=== PATIENT | male | born 1950 | race African-American/Black ===

== ENCOUNTER 2016-03-02 05:32 | Inpatient (IN) | payer OTHER, MEDICARE ==
[~2016-03-02] VITALS: Ht 175.3 cm; Wt 95.0 kg
[~2016-03-02 05:32] MED LIST: AVOD0.5C PO; COUM6TAB PO
[2016-03-02 05:57] VITALS: BP 174/92; PULSE 91; RESP 16; TEMP 97.4; O2SAT 99
[2016-03-02] MEDS ORDERED: INSULIN HUMAN REGULAR 1,000 UNITS/10 ML VIAL SQ PRN (06:00)
[2016-03-02] MEDS ORDERED: LACTATED RINGER'S 1000 ML IV SCH (06:00)
[2016-03-02] MEDS ORDERED: SODIUM CHLORID 0.9% 500 ML IV SCH (06:00)
[2016-03-02] MEDS ORDERED: METOPROLOL TARTRATE 25 MG TAB PO PRN (06:00)
[2016-03-02] MEDS ORDERED: ceFAZolin 1,000 MG/NS 100 ML IV SCH ×2 (06:15)
[2016-03-02] MEDS ORDERED: ACETAMINOPHEN 1000 MG/100 ML VIAL IV SCH (06:15)
[2016-03-02] MEDS ORDERED: VANCOMYCIN 1,000 MG/NS 250 ML IV SCH ×2 (06:15)
[2016-03-02 06:27] LABS: AUTOMATED NEUTROPHIL # 2.3 TH/MM3 (1.8-7.7); BASOPHIL % 0.4 % (0.0-2.0); EOSINOPHIL # 0.1 TH/MM3 (0-0.4); EOSINOPHIL % 1.4 % (0.0-4.0); HEMATOCRIT 43.3 % (39.0-51.0); HEMO FLAGS DIFF FINAL; LYMPH % 40.8 % (9.0-44.0); MEAN CELL VOLUME 87.2 FL (80.0-100.0); MEAN CORPUSCULAR HEMOGLOBIN 29.4 PG (27.0-34.0); MEAN CORPUSCULAR HGB CONC 33.7 % (32.0-36.0); MONO % 10.4 % (0.0-8.0); PLATELET COUNT 176 TH/MM3 (150-450); RED BLOOD COUNT 4.96 MIL/MM3 (4.50-5.90); RED CELL DISTRIBUTION WIDTH 17.1 % (11.6-17.2)
[2016-03-02 06:48] LABS: PROTHROMBIN TIME - PATIENT 10.6 SEC (9.8-11.6)
[2016-03-02 06:53] LABS: BICARBONATE 21.5 MEQ/L (21.0-32.0)
[2016-03-02] MEDS ORDERED: MIDAZOLAM HCL 2 MG/2 ML VIAL ONE (06:59)
[2016-03-02] MEDS ORDERED: BUPIVACAINE/EPINEPHRINE 0.25% PF 30 ML VIAL ONE (07:02)
[2016-03-02] MEDS ORDERED: FAMOTIDINE 20 MG/2 ML VIAL ONE ×2 (07:09→07:34)
[2016-03-02] MEDS ORDERED: MIDAZOLAM HCL 5 MG/5 ML VIAL ONE (07:10)
[2016-03-02] MEDS ORDERED: DICLOFENAC SODIUM 37.5 MG/ML VIAL IV PUSH ONE (07:31)
[2016-03-02] MEDS ORDERED: HYDROmorphone HCL PF 2 MG/ML VIAL ONE ×2 (07:31→10:52)
[2016-03-02] MEDS ORDERED: fentaNYL CITRATE 250 MCG/5 ML AMP ONE ×2 (07:31→10:52)
[2016-03-02] MEDS ORDERED: DEXAMETHASONE SOD PHOS 4 MG/ML VIAL ONE (07:34)
[2016-03-02] MEDS ORDERED: ceFAZolin INJ 1,000 MG VIAL IV ONE ×3 (08:46→10:20)
[2016-03-02] MEDS ORDERED: LACTATED RINGER'S 1000 ML INJ 1,000 ML IV ONE (12:00)
[2016-03-02] MEDS ORDERED: ePHEDrine/NS 50 MG/5 ML SYR IV ONE (12:00)
[2016-03-02] MEDS ORDERED: PHENYLEPH/NS 1000 MCG/10 ML SYR IV ONE (12:00)
[2016-03-02] MEDS ORDERED: PROPOFOL 200 MG/20 ML AMP IV ONE (12:00)
[2016-03-02] MEDS ORDERED: ONDANSETRON HCL 4 MG/2 ML VIAL IV PUSH ONE (12:00)
[2016-03-02] MEDS ORDERED: ROPIVACAINE 0.5% PF INJ 30 ML VIAL NB ONE (12:12)
--- NOTE | 2016-03-02 13:22 | HHI.PR ---
cc: Terry Garcia MD Immediate Post Op Note Procedure Date: Mar 02, 2016 Pre Op Diagnosis: Multiple incisional hernias, complex, with history incarceration Post Op Diagnosis: Same Surgeon: Terry Garcia [employer]inding [employer] Operator(s): Jeffrey Aguilar CST Procedure: Exploratory laparotomy, lysis adhesions, reduction multiple incisional hernias Bilateral myofascial flap advancement with 15 x 15 cm ultrapro mesh Complications: None Estimated blood loss: 100 ml Anesthesia: General Drains: None IVF (1500 ml) Patient to: PACU Patient Condition: Good Date/Time of Procedure: SEE SURGICAL CARE RECORD Terry Garcia MD Mar 02, 2016 13:22
[2016-03-02] MEDS ORDERED: diphenhydrAMINE HCL 50 MG/ML VIAL IVP PRN (13:30)
[2016-03-02] MEDS ORDERED: KETOROLAC TROMETHAMINE 30 MG/ML (IVP) VIAL IVP PRN (13:30)
[2016-03-02] MEDS ORDERED: ENOXAPARIN SODIUM 40 MG/0.4 ML SYRINGE SQ SCH (13:30)
[2016-03-02] MEDS ORDERED: ONDANSETRON HCL 4 MG/2 ML VIAL IV PRN (13:30)
[2016-03-02] MEDS ORDERED: Post-op Orders (for Pharmacy) MISC XX ONE (13:30)
[2016-03-02] MEDS ORDERED: NALOXONE HCL 0.4 MG/ML AMP IV PRN (13:30)
[2016-03-02] MEDS ORDERED: diphenhydrAMINE HCL 50 MG/ML VIAL IV PRN (13:30)
[2016-03-02] MEDS ORDERED: KETOROLAC TROMETHAMINE 30 MG/ML (IVP) VIAL ONE (13:35)
[2016-03-02] MEDS: ceFAZolin 2 GM PREMIX 50 ML IV SCH ×2 (14:00→23:01)
[2016-03-02] MEDS: PCA - TOTAL MG MORPHINE DELIVERED PER SHIFT SCH ×2 (14:00→22:00)
[2016-03-02] MEDS ORDERED: METOPROLOL TARTRATE 5 MG/5 ML VIAL ONE (14:32)
[2016-03-02] MEDS ORDERED: METOPROLOL TARTRATE 5 MG/5 ML VIAL IV PUSH ONE (14:45)
[2016-03-02] MEDS ORDERED: SODIUM CHLORID 0.9% 500 ML INJ 500 ML IV ONE (15:00)
[2016-03-02 15:10] VITALS: BP 127/73; PULSE 103; RESP 18; TEMP 97; O2SAT 92
[2016-03-02] MEDS: D5-NS + KCL 20 MEQ INJ 1,000 ML IV SCH ×2 (15:14→23:01)
[2016-03-02] MEDS: MORPHINE SULFATE 30 MG/30 ML PCA IV SCH (16:22)
[2016-03-02 20:00] VITALS: BP 148/77; PULSE 101; RESP 19; TEMP 97; O2SAT 96
[2016-03-02 20:44] VITALS: PULSE 104
[2016-03-02] MEDS ORDERED: ZOLPIDEM TARTRATE 5 MG TAB PO PRN (21:00)
[2016-03-02] MEDS: SODIUM CHLORIDE 0.9% FLUSH 5 ML FLUSH IVF SCH (21:00)
[2016-03-03] VITALS (7 sets, daily range): BP systolic 110–164; BP diastolic 65–81; PULSE 79–115; RESP 17–20; TEMP 97.8–99.8; O2SAT 93–96
[2016-03-03] MEDS: D5-NS + KCL 20 MEQ INJ 1,000 ML IV SCH ×3 (05:00→20:52)
[2016-03-03] MEDS: ceFAZolin 2 GM PREMIX 50 ML IV SCH (05:00)
[2016-03-03] MEDS: PCA - TOTAL MG MORPHINE DELIVERED PER SHIFT SCH ×3 (05:01→20:53)
[2016-03-03] MEDS: MORPHINE SULFATE 30 MG/30 ML PCA IV SCH ×2 (05:07→16:37)
[2016-03-03 05:10] LABS: AUTOMATED NEUTROPHIL # 14.4 TH/MM3 (1.8-7.7); BASOPHIL % 0.1 % (0.0-2.0); HEMATOCRIT 37.4 % (39.0-51.0); HEMO FLAGS DIFF FINAL; LYMPH % 6.4 % (9.0-44.0); LYMPHOCYTE # 1.1 TH/MM3 (1.0-4.8); MEAN CELL VOLUME 87.3 FL (80.0-100.0); MEAN CORPUSCULAR HEMOGLOBIN 29.5 PG (27.0-34.0); MEAN CORPUSCULAR HGB CONC 33.8 % (32.0-36.0); MONO % 8.8 % (0.0-8.0); NEUT % 84.7 % (16.0-70.0); PLATELET COUNT 171 TH/MM3 (150-450); RED BLOOD COUNT 4.28 MIL/MM3 (4.50-5.90); RED CELL DISTRIBUTION WIDTH 16.7 % (11.6-17.2)
[2016-03-03 05:40] LABS: BICARBONATE 22.7 MEQ/L (21.0-32.0); POTASSIUM 4.8 MEQ/L (3.5-5.1)
[2016-03-03] MEDS: SODIUM CHLORIDE 0.9% FLUSH 5 ML FLUSH IVF SCH ×2 (07:30→20:52)
[2016-03-03] MEDS: FINASTERIDE 5 MG TAB PO SCH (07:30)
[2016-03-03] MEDS ORDERED: PNEUMOCOCCAL POLYVALENT INJ 25 MCG/0.5 ML SYR IM ONE (10:00)
[2016-03-03] MEDS: ENOXAPARIN SODIUM 40 MG/0.4 ML SYRINGE SQ SCH (11:26)
[2016-03-03] MEDS ORDERED: RESP: ALBUTEROL 2.5 MG/IPRATROPIUM 0.5 MG NEB (SCH) NEB ONE (14:00)
--- NOTE | 2016-03-03 14:12 | RADRPT ---
EXAM DATE/TIME: 03/03/2016 14:04 [facility] COMPARISON: No previous studies available for comparison. INDICATIONS : Evaluate for volume overload. MEDICAL HISTORY : None. SURGICAL HISTORY : None. ENCOUNTER: Initial ACUITY: 1 day PAIN SCORE: 0/10 LOCATION: Bilateral chest FINDINGS: Volumes are diminished. There is no consolidation or effusion. Linear scarring versus subsegmental at electasis at the right base. Osseous structures are intact. CONCLUSION: Right basilar atelectasis. No evidence for volume overload. Patrick Goodson MD on March 03, 2016 at 14:11 Board Certified Radiologist. This report was verified electronically.
--- NOTE | 2016-03-03 18:18 | HHI.PR ---
Subjective Subjective Notes Feels fairly well. Some wheezing noted at times, but not SOB Objective Vitals/I&O Vital Signs Date Time Temp Pulse Resp B/P Pulse Ox O2 Delivery O2 Flow Rate FiO2 03/03/16 16:37 18 03/03/16 16:00 97.8 110 119/74 93 03/02/16 14:45 Nasal Cannula 2 Labs Laboratory Tests Test 03/03/16 04:30 White Blood Count 17.0 Red Blood Count 4.28 Hemoglobin 12.6 Hematocrit 37.4 Mean Corpuscular Volume 87.3 Mean Corpuscular Hemoglobin 29.5 Mean Corpuscular Hemoglobin 33.8 Concent Red Cell Distribution Width 16.7 Platelet Count 171 Mean Platelet Volume 8.3 Neutrophils (%) (Auto) 84.7 Lymphocytes (%) (Auto) 6.4 Monocytes (%) (Auto) 8.8 Eosinophils (%) (Auto) 0.0 Basophils (%) (Auto) 0.1 Neutrophils # (Auto) 14.4 Lymphocytes # (Auto) 1.1 Monocytes # (Auto) 1.5 Eosinophils # (Auto) 0.0 Basophils # (Auto) 0.0 CBC Comment DIFF FINAL Differential Comment Sodium Level 140 Potassium Level 4.8 Chloride Level 108 Carbon Dioxide Level 22.7 Anion Gap 9 Blood Urea Nitrogen 16 Creatinine 1.19 Estimat Glomerular Filtration 74 Rate Random Glucose 134 Calcium Level 8.4 Lungs: Clear Abdomen: Non-distended, Post-op tenderness Extremities: No edema Narrative Exam Bottom of SYLVIA dressing with old drainage A/P Assessment and Plan POD #1 TAWR with ultrapro mesh large volume urine output Plan: Check CXR Leave mackey in one more day Advance to full liquid diet Up to chair today Discussed with patient and . Terry Garcia MD Mar 03, 2016 18:18
[2016-03-04] VITALS (9 sets, daily range): BP systolic 136–175; BP diastolic 76–107; PULSE 96–143; RESP 16–19; TEMP 97.7–99.9; O2SAT 94–96
[2016-03-04] MEDS: PCA - TOTAL MG MORPHINE DELIVERED PER SHIFT SCH ×3 (05:51→20:28)
[2016-03-04] MEDS: D5-NS + KCL 20 MEQ INJ 1,000 ML IV SCH ×3 (05:51→20:20)
[2016-03-04 07:11] LABS: AUTOMATED NEUTROPHIL # 7.9 TH/MM3 (1.8-7.7); BASOPHIL % 0.2 % (0.0-2.0); EOSINOPHIL % 0.3 % (0.0-4.0); HEMATOCRIT 35.2 % (39.0-51.0); HEMO FLAGS DIFF FINAL; LYMPH % 10.2 % (9.0-44.0); MEAN CELL VOLUME 87.2 FL (80.0-100.0); MEAN CORPUSCULAR HEMOGLOBIN 30.3 PG (27.0-34.0); MEAN CORPUSCULAR HGB CONC 34.7 % (32.0-36.0); MONO % 9.2 % (0.0-8.0); NEUT % 80.1 % (16.0-70.0); PLATELET COUNT 145 TH/MM3 (150-450); RED BLOOD COUNT 4.03 MIL/MM3 (4.50-5.90); WHITE BLOOD COUNT 9.9 TH/MM3 (4.0-11.0)
[2016-03-04 07:26] LABS: PROTHROMBIN TIME - PATIENT 11.1 SEC (9.8-11.6)
[2016-03-04] MEDS: SODIUM CHLORIDE 0.9% FLUSH 5 ML FLUSH IVF SCH ×2 (08:30→20:20)
[2016-03-04] MEDS: FINASTERIDE 5 MG TAB PO SCH (09:30)
[2016-03-04] MEDS: ENOXAPARIN SODIUM 40 MG/0.4 ML SYRINGE SQ SCH (09:30)
--- NOTE | 2016-03-04 09:52 | HHI.PR ---
Subjective Subjective Notes no new c/o Objective Vitals/I&O Vital Signs Date Time Temp Pulse Resp B/P Pulse Ox O2 Delivery O2 Flow Rate FiO2 03/04/16 08:00 99.3 128 18 145/97 95 03/02/16 14:45 Nasal Cannula 2 Labs Laboratory Tests Test 03/04/16 05:45 White Blood Count 9.9 Red Blood Count 4.03 Hemoglobin 12.2 Hematocrit 35.2 Mean Corpuscular Volume 87.2 Mean Corpuscular Hemoglobin 30.3 Mean Corpuscular Hemoglobin 34.7 Concent Red Cell Distribution Width 17.0 Platelet Count 145 Mean Platelet Volume 8.5 Neutrophils (%) (Auto) 80.1 Lymphocytes (%) (Auto) 10.2 Monocytes (%) (Auto) 9.2 Eosinophils (%) (Auto) 0.3 Basophils (%) (Auto) 0.2 Neutrophils # (Auto) 7.9 Lymphocytes # (Auto) 1.0 Monocytes # (Auto) 0.9 Eosinophils # (Auto) 0.0 Basophils # (Auto) 0.0 CBC Comment DIFF FINAL Differential Comment Prothrombin Time 11.1 Prothromb Time International 1.0 Ratio Cardiovascular: Regular Lungs: Clear Abdomen: Post-op tenderness Extremities: No edema, Perfused, SCD's on Narrative Exam soft, tympanic, decreased BS A/P Assessment and Plan 65yo male s/p abdominal wall reconstruction, stable. - increase abdomen on exam, vomiting, no gas, decrease BS, suspect po ileus, check KUB, place NG for vomiting - PICC line - NPO George Delgadillo MD Mar 04, 2016 09:52
--- NOTE | 2016-03-04 10:44 | RADRPT ---
EXAM DATE/TIME: 03/04/2016 10:05 [facility] COMPARISON: CT ABDOMEN & PELVIS W CONTRAST, January 22, 2016, 12:09. INDICATIONS : Post operation for abdominal wall reconstruction. MEDICAL HISTORY : Hernia. SURGICAL HISTORY : Appendectomy. Hernial repair. ENCOUNTER: Initial ACUITY: 1 day PAIN SCORE: 5/10 LOCATION: Bilateral abdomen. FINDINGS: Supine view of the abdomen was performed. The abdominal bowel gas pattern reveals mild bowel distent ion which may reflect a mild ileus pattern. No abnormal masses, calcifications, or organomegaly is s een. The osseous structures are unremarkable. CONCLUSION: Probable mild ileus. Patrick Goodson MD on March 04, 2016 at 10:42 Board Certified Radiologist. This report was verified electronically.
[2016-03-04] MEDS ORDERED: MORPHINE SULFATE 4 MG/ML INJ IM PRN (11:00)
[2016-03-04] MEDS ORDERED: ACETAMINOPHEN/HYDROcodone 325 MG/5 MG TAB PO PRN ×2 (11:00)
[2016-03-04] MEDS: CALCIUM CARBONATE 500 MG CHEWABLE TAB PO PRN ×2 (11:28→16:04)
[2016-03-04] MEDS: MORPHINE SULFATE 30 MG/30 ML PCA IV SCH (13:47)
[2016-03-04] MEDS: ENALAPRILAT 1.25 MG/ML VIAL IV PRN (15:58)
[2016-03-05] VITALS (9 sets, daily range): BP systolic 122–176; BP diastolic 81–103; PULSE 106–143; RESP 16–20; TEMP 96.7–99.8; O2SAT 93–95
[2016-03-05] MEDS: ENALAPRILAT 1.25 MG/ML VIAL IV PRN ×2 (04:59→12:38)
[2016-03-05] MEDS: D5-NS + KCL 20 MEQ INJ 1,000 ML IV SCH ×2 (04:59→08:26)
[2016-03-05] MEDS: PCA - TOTAL MG MORPHINE DELIVERED PER SHIFT SCH ×3 (04:59→20:25)
[2016-03-05 06:05] LABS: HEMATOCRIT 40.1 % (39.0-51.0); MEAN CELL VOLUME 87.5 FL (80.0-100.0); MEAN CORPUSCULAR HEMOGLOBIN 29.8 PG (27.0-34.0); MEAN CORPUSCULAR HGB CONC 34.1 % (32.0-36.0); PLATELET COUNT 189 TH/MM3 (150-450); RED BLOOD COUNT 4.58 MIL/MM3 (4.50-5.90); RED CELL DISTRIBUTION WIDTH 17.5 % (11.6-17.2); REVIEW FLAG FINAL; WHITE BLOOD COUNT 11.5 TH/MM3 (4.0-11.0)
[2016-03-05 06:09] LABS: PROTHROMBIN TIME - PATIENT 11.1 SEC (9.8-11.6)
[2016-03-05 06:34] LABS: BICARBONATE 23.4 MEQ/L (21.0-32.0)
[2016-03-05] MEDS: FINASTERIDE 5 MG TAB PO SCH (08:23)
[2016-03-05] MEDS: SODIUM CHLORIDE 0.9% FLUSH 5 ML FLUSH IVF SCH ×2 (09:00→20:25)
--- NOTE | 2016-03-05 11:40 | RADRPT ---
EXAM DATE/TIME: 03/05/2016 11:29 [facility] COMPARISON: ABDOMEN KUB ONLY, March 04, 2016, 10:05. INDICATIONS : Abdominal distention post op. MEDICAL HISTORY : Deep venous thrombosis. SURGICAL HISTORY : Appendectomy. hernia repair ENCOUNTER: Initial ACUITY: 4 - 6 days PAIN SCORE: 0/10 LOCATION: Bilateral abdomen FINDINGS: There are dilated loops of small bowel seen throughout the midabdomen with air-fluid levels on the up right view. A paucity of distal bowel gas is noted. Ileus is suspected, however a developing obstruct ion is not excluded. NG tube tip coiled in the proximal stomach. CONCLUSION: Abnormal distention of bowel loops as described above. Patrick Goodson MD on March 05, 2016 at 11:38 Board Certified Radiologist. This report was verified electronically.
[2016-03-05] MEDS: METOCLOPRAMIDE HCL 10 MG/2 ML VIAL IV PUSH SCH ×2 (12:48→20:26)
[2016-03-05] MEDS: SODIUM CHLOR 0.9% 1000 ML INJ 1,000 ML IV SCH ×2 (12:48→14:51)
[2016-03-05] MEDS ORDERED: BISACODYL 10 MG SUPP RECTAL ONE (13:00)
[2016-03-05] MEDS: ceFAZolin 1,000 MG/NS 100 ML IV SCH ×4 (14:51→20:25)
[2016-03-05 15:31] LABS: BACTERIA, URINE RARE /hpf; BLOOD, URINE MOD (NEG); GLUCOSE,URINE NEG (NEG); KETONE, URINE NEG (NEG); MUCUS URINE MOD /lpf (OCC); NITRITE,URINE NEG (NEG)
[2016-03-05 15:32] LABS: COMMENT (UR) CATH-CULTURE IND; CULTURE IF INDICATED CATH CULTURE IND; URINE COLOR ORANGE (YELLW/STRAW)
[2016-03-05] MEDS ORDERED: SODIUM CHLORID 0.9% 500 ML INJ 500 ML IV ONE (21:00)
--- NOTE | 2016-03-05 22:42 | MP ---
cc: JAIME GARCIA M.D. DATE OF SURGERY: 03/02/2016. PROCEDURE: 1. Exploratory laparotomy with reduction of incarcerated incisional hernias. 2. Lysis of adhesions greater than one hour. 3. Bilateral myofascial flap advancement. 4. Placement of 15 x 15 Ultrapro mesh. PREOPERATIVE DIAGNOSIS: Incarcerated incisional hernias, symptomatic. POSTOPERATIVE DIAGNOSIS: Incarcerated incisional hernias, symptomatic. ANESTHESIA: General endotracheal anesthesia SURGEON: Alexis Garcia MD. ESTIMATED BLOOD LOSS: 100 mL FLUIDS: 1500 mL Crystalloid. COMPLICATIONS: None. DRAINS: None. SPECIMEN: None. PROCEDURE IN DETAIL The patient underwent TAP block in the holding area prior to going to the operating room. The patient was taken to the operating room and placed on the operating table in the supine position. After an adequate level of general endotracheal anesthesia was achieved, the abdomen was prepped and draped in the usual fashion. Time-out was taken confirming the correct patient, site and procedure to be performed. Incision was made around the patient's previous scar and most of the longitudinal scar was removed. Some of the patient's previous drain sites could not be excised and these were left intact. After removing the scar, dissection was carried down to the hernias. The patient had at least four hernias with three in the right paramedian scar and one in the midline under the umbilicus. These hernias varied in size between 2 and 6 cm. Three were grouped fairly close together in the middle portion of the incision. These were joined together and underlying tissue which was incarcerated and comprised mostly of preperitoneal fat was reduced into the abdominal cavity after freeing them from the hernia sacs with both sharp dissection and electrocautery. When this had been completed, adhesions were taken down off of the anterior abdominal wall which consisted mostly of omentum. When this had been completely reduced and taken down off the anterior abdominal wall, more than 60 minutes had elapsed. The multiple hernias in the right paramedian scar were connected to make one large defect. When this had been completed, dissection was then carried out in the subfascial plane under the rectus muscles. Dissection was carried out on the right side first and this was carried out all the way over to the anterior superior iliac spine and to the lateral abdominal wall. Dissection was then carried out medially crossing across the midline and then proceeding over to the patient's left all the way over to the lateral border of the abdominal wall and the edge of the transversus abdominis muscle. When this had been completed, the posterior layer of fascia and peritoneum was closed with 0 Vicryl suture in an interrupted fashion. This excluded the mesh material from the peritoneum. A 15 x 15 cm piece of Ultrapro mesh was then brought up and placed into the defect. The mesh was fixed superiorly and inferiorly first with 0 Vicryl suture and then laterally at multiple points with the 0 Vicryl suture. This allowed for placement of the mesh in the subfascial plane in the retro-rectus space. When this had been completed with the mesh transfixed laterally and superiorly as well as inferiorly, the anterior fascia was able to be approximated without any tension. Interrupted #1 Prolene was used to close this layer. When this was completed excess skin was excised from the anterior abdominal wall including scar. The subcutaneous space was then closed down with running 3-0 Vicryl suture to minimize space. The wound was then reapproximated in the right paramedian scar with interrupted 3-0 Vicryl suture and the skin closed with 5-0 PDS in a running subcuticular fashion. The wound was dressed with Steri-Strips and a SYLVIA dressing was applied. It should be noted that the fascia was released on both sides once dissection had been carried out lateral to the rectus muscle in the posterior layer. This allowed for the posterior layer to be reapproximated. The mesh overlapped this release and was placed lateral to the release. An abdominal binder was applied at the completion of the procedure. Sponge, needle and instrument counts were reported to be correct x2 after closure of each layer. The patient was extubated and taken back to the recovery room in stable condition. MD MANJULA Enriquez/GHANSHYAM /9:40 PM /10:28 PM ANASTACAI
[2016-03-06] VITALS (9 sets, daily range): BP systolic 131–173; BP diastolic 87–94; PULSE 108–135; RESP 19–20; TEMP 97.2–99.4; O2SAT 93–97
[2016-03-06] MEDS: SODIUM CHLOR 0.9% 1000 ML INJ 1,000 ML IV SCH (03:47)
[2016-03-06] MEDS: ENALAPRILAT 1.25 MG/ML VIAL IV PRN (03:49)
[2016-03-06] MEDS: ceFAZolin 1,000 MG/NS 100 ML IV SCH ×6 (05:00→20:31)
[2016-03-06] MEDS: PCA - TOTAL MG MORPHINE DELIVERED PER SHIFT SCH ×3 (05:00→20:32)
[2016-03-06] MEDS: METOCLOPRAMIDE HCL 10 MG/2 ML VIAL IV PUSH SCH ×3 (05:01→22:00)
[2016-03-06 06:05] LABS: PROTHROMBIN TIME - PATIENT 11.1 SEC (9.8-11.6)
[2016-03-06 06:07] LABS: AUTOMATED NEUTROPHIL # 7.8 TH/MM3 (1.8-7.7); BASOPHIL % 0.2 % (0.0-2.0); EOSINOPHIL % 0.1 % (0.0-4.0); HEMATOCRIT 32.5 % (39.0-51.0); HEMO FLAGS DIFF FINAL; LYMPHOCYTE # 1.2 TH/MM3 (1.0-4.8); MEAN CELL VOLUME 86.5 FL (80.0-100.0); MEAN CORPUSCULAR HGB CONC 34.7 % (32.0-36.0); NEUT % 75.7 % (16.0-70.0); PLATELET COUNT 157 TH/MM3 (150-450); RED BLOOD COUNT 3.76 MIL/MM3 (4.50-5.90); RED CELL DISTRIBUTION WIDTH 17.1 % (11.6-17.2); WHITE BLOOD COUNT 10.2 TH/MM3 (4.0-11.0)
[2016-03-06 06:17] LABS: BICARBONATE 24.2 MEQ/L (21.0-32.0); POTASSIUM 4.1 MEQ/L (3.5-5.1)
[2016-03-06] MEDS: SODIUM CHLORIDE 0.9% FLUSH 5 ML FLUSH IVF SCH ×2 (09:00→20:32)
[2016-03-06] MEDS: FINASTERIDE 5 MG TAB PO SCH (09:00)
--- NOTE | 2016-03-06 10:31 | HHI.PR ---
Subjective Subjective Notes Still feels poorly. Uncomfortable; asking for ice chips. Objective Vitals/I&O Vital Signs Date Time Temp Pulse Resp B/P Pulse Ox O2 Delivery O2 Flow Rate FiO2 03/06/16 08:00 98.7 120 19 144/87 95 03/05/16 08:49 21 03/04/16 11:34 Nasal Cannula 1.00 Labs Laboratory Tests Test 03/05/16 03/06/16 14:40 05:40 Urine Color ORANGE Urine Turbidity HAZY Urine pH 6.0 Urine Specific [place] 1.033 Urine Protein 100 Urine Glucose (UA) NEG Urine Ketones NEG Urine Occult Blood MOD Urine Nitrite NEG Urine Bilirubin NEG Urine Urobilinogen LESS THAN 2.0 Urine Leukocyte Esterase TRACE Urine RBC 67 Urine WBC 9 Urine Bacteria RARE Urine Mucus MOD Microscopic Urinalysis Comment CATH-CULTURE IND White Blood Count 10.2 Red Blood Count 3.76 Hemoglobin 11.3 Hematocrit 32.5 Mean Corpuscular Volume 86.5 Mean Corpuscular Hemoglobin 30.0 Mean Corpuscular Hemoglobin 34.7 Concent Red Cell Distribution Width 17.1 Platelet Count 157 Mean Platelet Volume 8.3 Neutrophils (%) (Auto) 75.7 Lymphocytes (%) (Auto) 12.0 Monocytes (%) (Auto) 12.0 Eosinophils (%) (Auto) 0.1 Basophils (%) (Auto) 0.2 Neutrophils # (Auto) 7.8 Lymphocytes # (Auto) 1.2 Monocytes # (Auto) 1.2 Eosinophils # (Auto) 0.0 Basophils # (Auto) 0.0 CBC Comment DIFF FINAL Differential Comment Prothrombin Time 11.1 Prothromb Time International 1.0 Ratio Sodium Level 142 Potassium Level 4.1 Chloride Level 109 Carbon Dioxide Level 24.2 Anion Gap 9 Blood Urea Nitrogen 18 Creatinine 0.77 Estimat Glomerular Filtration 123 Rate Random Glucose 162 Calcium Level 8.8 Date/Time Procedure Status Source Growth 03/05/16 14:40 Urine Culture Received Urine Catheterized Urine Pending Lungs: Clear Abdomen: Other (Distended but minimally tender) Narrative Exam Incision with small amount bloody drainage at bottom. A/P Assessment and Plan POD #4 TAWR with ultrapro mesh Still tachycardic, but better with fluid bolus yesterday. SYLVIA bandage removed yesterday; no signs of infection. Ileus persists by KUB yesterday and physical findings today. Plan: Leave mackey in for today; remove VERONIQUE, as possible UTI OK for ice chips Up to chair today Change IVF to 1/2 NS with KCl Teryr Garcia MD Mar 06, 2016 10:30
[2016-03-06] MEDS: 1/2 NS + KCL 20 MEQ INJ 1,000 ML IV SCH ×2 (12:19→20:31)
[2016-03-06] MEDS: MORPHINE SULFATE 30 MG/30 ML PCA IV SCH (19:45)
[2016-03-07] VITALS (7 sets, daily range): BP systolic 150–167; BP diastolic 86–93; PULSE 52–107; RESP 16–20; TEMP 97.7–99.8; O2SAT 95–99
[2016-03-07] MEDS: ceFAZolin 1,000 MG/NS 100 ML IV SCH ×6 (04:14→21:16)
[2016-03-07] MEDS: 1/2 NS + KCL 20 MEQ INJ 1,000 ML IV SCH ×3 (04:15→18:30)
[2016-03-07] MEDS: PCA - TOTAL MG MORPHINE DELIVERED PER SHIFT SCH ×3 (05:18→21:16)
[2016-03-07] MEDS: METOCLOPRAMIDE HCL 10 MG/2 ML VIAL IV PUSH SCH ×3 (05:19→21:17)
[2016-03-07 06:57] LABS: AUTOMATED NEUTROPHIL # 4.8 TH/MM3 (1.8-7.7); BASOPHIL % 0.2 % (0.0-2.0); EOSINOPHIL # 0.1 TH/MM3 (0-0.4); EOSINOPHIL % 0.8 % (0.0-4.0); HEMATOCRIT 29.9 % (39.0-51.0); HEMO FLAGS DIFF FINAL; LYMPH % 18.7 % (9.0-44.0); LYMPHOCYTE # 1.3 TH/MM3 (1.0-4.8); MEAN CORPUSCULAR HEMOGLOBIN 30.6 PG (27.0-34.0); MEAN CORPUSCULAR HGB CONC 35.2 % (32.0-36.0); NEUT % 69.3 % (16.0-70.0); PLATELET COUNT 134 TH/MM3 (150-450); RED BLOOD COUNT 3.43 MIL/MM3 (4.50-5.90); RED CELL DISTRIBUTION WIDTH 17.3 % (11.6-17.2); WHITE BLOOD COUNT 6.9 TH/MM3 (4.0-11.0)
[2016-03-07 07:03] LABS: PROTHROMBIN TIME - PATIENT 10.7 SEC (9.8-11.6)
[2016-03-07 07:08] LABS: BICARBONATE 25.1 MEQ/L (21.0-32.0); POTASSIUM 3.9 MEQ/L (3.5-5.1)
[2016-03-07] MEDS: FINASTERIDE 5 MG TAB PO SCH (08:27)
[2016-03-07] MEDS: SODIUM CHLORIDE 0.9% FLUSH 5 ML FLUSH IVF SCH ×2 (08:27→21:00)
--- NOTE | 2016-03-07 11:52 | HHI.PR ---
Subjective Subjective Notes Feeling weak, but not worse. Needs note for work. Objective Vitals/I&O Vital Signs Date Time Temp Pulse Resp B/P Pulse Ox O2 Delivery O2 Flow Rate FiO2 03/07/16 11:24 98.0 101 19 156/86 99 03/06/16 18:21 21 03/04/16 11:34 Nasal Cannula 1.00 Labs Laboratory Tests Test 03/07/16 05:53 White Blood Count 6.9 Red Blood Count 3.43 Hemoglobin 10.5 Hematocrit 29.9 Mean Corpuscular Volume 87.0 Mean Corpuscular Hemoglobin 30.6 Mean Corpuscular Hemoglobin 35.2 Concent Red Cell Distribution Width 17.3 Platelet Count 134 Mean Platelet Volume 8.0 Neutrophils (%) (Auto) 69.3 Lymphocytes (%) (Auto) 18.7 Monocytes (%) (Auto) 11.0 Eosinophils (%) (Auto) 0.8 Basophils (%) (Auto) 0.2 Neutrophils # (Auto) 4.8 Lymphocytes # (Auto) 1.3 Monocytes # (Auto) 0.8 Eosinophils # (Auto) 0.1 Basophils # (Auto) 0.0 CBC Comment DIFF FINAL Differential Comment Prothrombin Time 10.7 Prothromb Time International 1.0 Ratio Sodium Level 141 Potassium Level 3.9 Chloride Level 106 Carbon Dioxide Level 25.1 Anion Gap 10 Blood Urea Nitrogen 16 Creatinine 0.65 Estimat Glomerular Filtration 149 Rate Random Glucose 109 Calcium Level 8.5 Date/Time Procedure Status Source Growth 03/05/16 14:40 Urine Culture - Final Complete Urine Catheterized Urine NO GROWTH IN 48 HOURS. Lungs: Clear Abdomen: Other (Distended) Narrative Exam Incision with small amount serous drainage at bottom, no erythema. A/P Assessment and Plan POD #5 TAWR with ultrapro mesh Tachycardia improved Ileus by physical findings today. Urine culture no growth - no UTI INR still 1.0 Plan: OK for ice chips Up to chair today, mobilize. D/C key and NG Terry Garcia MD Mar 07, 2016 11:52
[2016-03-07] MEDS ORDERED: SOD PHOSPHATE/SOD BIPHOSPHATE (ADULT) ENEMA 133ML PR ONE (12:30)
[2016-03-07 15:56] LABS: PROTHROMBIN TIME - PATIENT 11.3 SEC (9.8-11.6)
[2016-03-08] VITALS (9 sets, daily range): BP systolic 150–180; BP diastolic 86–97; PULSE 96–102; RESP 18–20; TEMP 98.3–99.4; O2SAT 90–98
[2016-03-08] MEDS: ceFAZolin 1,000 MG/NS 100 ML IV SCH ×2 (05:47)
[2016-03-08] MEDS: PCA - TOTAL MG MORPHINE DELIVERED PER SHIFT SCH ×3 (05:49→21:24)
[2016-03-08] MEDS: 1/2 NS + KCL 20 MEQ INJ 1,000 ML IV SCH ×2 (05:49→12:12)
[2016-03-08] MEDS: METOCLOPRAMIDE HCL 10 MG/2 ML VIAL IV PUSH SCH ×3 (05:50→21:23)
[2016-03-08] MEDS: SODIUM CHLORIDE 0.9% FLUSH 5 ML FLUSH IVF SCH ×2 (08:44→21:24)
[2016-03-08] MEDS: FINASTERIDE 5 MG TAB PO SCH (08:44)
[2016-03-08] MEDS ORDERED: ACETAMINOPHEN/HYDROcodone 325 MG/5 MG TAB PO PRN (08:45)
[2016-03-08 11:05] LABS: INTERNATIONAL NORMALIZED RATIO 1.1 RATIO; PROTHROMBIN TIME - PATIENT 11.8 SEC (9.8-11.6)
[2016-03-08] MEDS: ENALAPRILAT 1.25 MG/ML VIAL IV PRN (12:12)
[2016-03-08] MEDS: ACETAMINOPHEN/HYDROcodone 325 MG/5 MG TAB PO PRN ×2 (12:17→21:23)
[2016-03-08] MEDS ORDERED: 1/2 NS + KCL 20 MEQ INJ 1,000 ML IV SCH (14:30)
[2016-03-08] MEDS ORDERED: FUROSEMIDE 20 MG/2 ML VIAL IV PUSH ONE (14:30)
[2016-03-08] MEDS: WARFARIN SOD 6 MG TAB PO SCH (16:27)
--- NOTE | 2016-03-08 22:06 | HHI.PR ---
Subjective Subjective Notes Still distended; burping No flatus or BM yet. Objective Vitals/I&O Vital Signs Date Time Temp Pulse Resp B/P Pulse Ox O2 Delivery O2 Flow Rate FiO2 03/08/16 21:24 20 03/08/16 20:00 99.3 97 159/89 94 03/08/16 10:38 21 03/04/16 11:34 Nasal Cannula 1.00 Labs Laboratory Tests Test 03/08/16 10:45 Prothrombin Time 11.8 Prothromb Time International 1.1 Ratio Date/Time Procedure Status Source Growth 03/05/16 14:40 Urine Culture - Final Complete Urine Catheterized Urine NO GROWTH IN 48 HOURS. Lungs: Clear Abdomen: Other (Distended, nontender) Extremities: Other (Pedal edema this afternoon; new finding) Narrative Exam Incision with small amount serous drainage at bottom, no erythema. A/P Assessment and Plan POD #6 TAWR with ultrapro mesh Tachycardia improved Ileus continues by physical findings today. INR 1.1 today Plan: OK for clears Mobilized with PT today; walking in hallway Las for edema Terry Garcia MD Mar 08, 2016 22:05
[2016-03-09] VITALS: BP 144/95; PULSE 103; RESP 17; TEMP 98.2; O2SAT 97
[2016-03-09] MEDS: 1/2 NS + KCL 20 MEQ INJ 1,000 ML IV SCH ×2 (01:23→12:23)
[2016-03-09] MEDS: ACETAMINOPHEN/HYDROcodone 325 MG/5 MG TAB PO PRN ×3 (03:53→19:40)
[2016-03-09 04:00] VITALS: BP 154/89; PULSE 102; RESP 17; TEMP 98.6; O2SAT 95
[2016-03-09 05:11] LABS: INTERNATIONAL NORMALIZED RATIO 1.1 RATIO; PROTHROMBIN TIME - PATIENT 12.7 SEC (9.8-11.6)
[2016-03-09] MEDS: PCA - TOTAL MG MORPHINE DELIVERED PER SHIFT SCH ×2 (06:00→12:19)
[2016-03-09] MEDS: METOCLOPRAMIDE HCL 10 MG/2 ML VIAL IV PUSH SCH ×3 (06:28→19:40)
[2016-03-09 08:00] VITALS: BP 137/83; PULSE 98; RESP 19; TEMP 98.2; O2SAT 95
[2016-03-09] MEDS: FINASTERIDE 5 MG TAB PO SCH (08:39)
[2016-03-09] MEDS: SODIUM CHLORIDE 0.9% FLUSH 5 ML FLUSH IVF SCH ×2 (08:47→19:40)
[2016-03-09 12:00] VITALS: BP 168/89; PULSE 104; RESP 19; TEMP 98.1; O2SAT 92
[2016-03-09] MEDS ORDERED: FUROSEMIDE 20 MG/2 ML VIAL IV PUSH ONE (14:15)
[2016-03-09] MEDS: WARFARIN SOD 6 MG TAB PO SCH (14:44)
[2016-03-09 16:00] VITALS: BP 159/92; PULSE 99; RESP 19; TEMP 97.6; O2SAT 93
--- NOTE | 2016-03-09 18:42 | HHI.PR ---
Subjective Subjective Notes Slowly improving Reports flatus Objective Vitals/I&O Vital Signs Date Time Temp Pulse Resp B/P Pulse Ox O2 Delivery O2 Flow Rate FiO2 03/09/16 16:00 97.6 99 19 159/92 93 03/08/16 10:38 21 Labs Laboratory Tests Test 03/09/16 04:43 Prothrombin Time 12.7 Prothromb Time International 1.1 Ratio Date/Time Procedure Status Source Growth 03/05/16 14:40 Urine Culture - Final Complete Urine Catheterized Urine NO GROWTH IN 48 HOURS. Cardiovascular: Regular Lungs: Clear Abdomen: Other (Distended still, nontender) Extremities: Other (Pedal edema) Narrative Exam Incision with small amount serous drainage at bottom, no erythema. A/P Assessment and Plan POD #7 TAWR with ultrapro mesh Ileus continues by physical findings today, but improved with flatus. 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
[2016-03-09 20:00] VITALS: BP 164/89; PULSE 104; RESP 17; TEMP 98.8; O2SAT 97
[2016-03-10] VITALS: BP 148/85; PULSE 94; RESP 17; TEMP 98.2; O2SAT 97
[2016-03-10] MEDS: ACETAMINOPHEN/HYDROcodone 325 MG/5 MG TAB PO PRN ×3 (04:28→20:32)
[2016-03-10] MEDS: METOCLOPRAMIDE HCL 10 MG/2 ML VIAL IV PUSH SCH ×3 (04:28→20:32)
[2016-03-10] MEDS: CALCIUM CARBONATE 500 MG CHEWABLE TAB PO PRN (04:43)
[2016-03-10 05:24] LABS: INTERNATIONAL NORMALIZED RATIO 1.4 RATIO; PROTHROMBIN TIME - PATIENT 15.4 SEC (9.8-11.6)
[2016-03-10 05:27] LABS: BICARBONATE 27.2 MEQ/L (21.0-32.0); POTASSIUM 3.6 MEQ/L (3.5-5.1)
[2016-03-10 05:46] LABS: BASOPHIL # 0.1 TH/MM3 (0-0.2); BASOPHIL % 0.7 % (0.0-2.0); EOSINOPHIL # 0.1 TH/MM3 (0-0.4); EOSINOPHIL % 1.5 % (0.0-4.0); HEMATOCRIT 33.8 % (39.0-51.0); LYMPH % 13.2 % (9.0-44.0); LYMPHOCYTE # 0.9 TH/MM3 (1.0-4.8); MEAN CELL VOLUME 89.6 FL (80.0-100.0); MEAN CORPUSCULAR HEMOGLOBIN 29.7 PG (27.0-34.0); MEAN CORPUSCULAR HGB CONC 33.1 % (32.0-36.0); MONO % 13.6 % (0.0-8.0); PLATELET COUNT 95 TH/MM3 (150-450); RED BLOOD COUNT 3.78 MIL/MM3 (4.50-5.90); RED CELL DISTRIBUTION WIDTH 17.6 % (11.6-17.2); WHITE BLOOD COUNT 7.1 TH/MM3 (4.0-11.0)
[2016-03-10 05:49] LABS: HEMO FLAGS AUTO DIFF
[2016-03-10 08:00] VITALS: BP 177/80; PULSE 120; RESP 18; TEMP 98.4; O2SAT 93
[2016-03-10] MEDS: SODIUM CHLORIDE 0.9% FLUSH 5 ML FLUSH IVF SCH ×2 (08:27→19:18)
[2016-03-10] MEDS: FINASTERIDE 5 MG TAB PO SCH (08:27)
--- NOTE | 2016-03-10 10:14 | HHI.PR ---
Subjective Subjective Notes Full liquids " did not work", he threw up. He has passed flatus this AM , no BM. Wants enema. Objective Vitals/I&O Vital Signs Date Time Temp Pulse Resp B/P Pulse Ox O2 Delivery O2 Flow Rate FiO2 03/10/16 08:00 98.4 120 18 177/80 93 03/08/16 10:38 21 Labs Laboratory Tests Test 03/10/16 04:28 White Blood Count 7.1 Red Blood Count 3.78 Hemoglobin 11.2 Hematocrit 33.8 Mean Corpuscular Volume 89.6 Mean Corpuscular Hemoglobin 29.7 Mean Corpuscular Hemoglobin 33.1 Concent Red Cell Distribution Width 17.6 Platelet Count 95 Mean Platelet Volume 8.3 Neutrophils (%) (Auto) 71.0 Lymphocytes (%) (Auto) 13.2 Monocytes (%) (Auto) 13.6 Eosinophils (%) (Auto) 1.5 Basophils (%) (Auto) 0.7 Neutrophils # (Auto) 5.0 Lymphocytes # (Auto) 0.9 Monocytes # (Auto) 1.0 Eosinophils # (Auto) 0.1 Basophils # (Auto) 0.1 CBC Comment AUTO DIFF Prothrombin Time 15.4 Prothromb Time International 1.4 Ratio Sodium Level 136 Potassium Level 3.6 Chloride Level 100 Carbon Dioxide Level 27.2 Anion Gap 9 Blood Urea Nitrogen 9 Creatinine 0.58 Estimat Glomerular Filtration 170 Rate Random Glucose 125 Calcium Level 8.4 Date/Time Procedure Status Source Growth 03/05/16 14:40 Urine Culture - Final Complete Urine Catheterized Urine NO GROWTH IN 48 HOURS. Cardiovascular: Regular Lungs: Clear Abdomen: Other (distended and quiet. Incision OK, no erythema, small amount of clear peña drainage inferiorly.) Extremities: Other (edema B LE, genital edema present as well.) A/P Assessment and Plan Postop AWR, ileus. Add erythromycin, continue to walk halls. Potassium level OK, will check magnesium. Fleets ordered. IVF at low rate restarted. Edema related to low intravascular protein, may need diuretic again if po intake does not improve. D/W pt and . Akash Lewis MD Mar 10, 2016 10:14
[2016-03-10] MEDS ORDERED: SOD PHOSPHATE/SOD BIPHOSPHATE (ADULT) ENEMA 133ML PR ONE ×2 (10:15→23:45)
[2016-03-10 11:24] LABS: PLATELET ESTIMATE SMEAR LOW (NORMAL); PLATELET MORPHOLOGY NORMAL (NORMAL); SCAN/DIFF AUTO DIFF CONFIRMED
[2016-03-10] MEDS: LACTATED RINGER'S 1000 ML INJ 1,000 ML IV SCH (11:46)
[2016-03-10 12:00] VITALS: BP 151/95; PULSE 97; RESP 19; TEMP 98.7; O2SAT 97
[2016-03-10 12:02] LABS: INTERNATIONAL NORMALIZED RATIO 1.5 RATIO; PROTHROMBIN TIME - PATIENT 16.8 SEC (9.8-11.6)
[2016-03-10] MEDS: ERYTHROMYCIN INJ 250 MG in SODIUM CHLORIDE 0.9% INJ 100 ML IV SCH ×3 (12:12→23:43)
[2016-03-10 16:00] VITALS: BP 157/88; PULSE 99; RESP 19; TEMP 97.9; O2SAT 95
[2016-03-10] MEDS: WARFARIN SOD 6 MG TAB PO SCH (16:14)
[2016-03-10 20:00] VITALS: BP 138/94; PULSE 92; RESP 20; TEMP 99.3; O2SAT 96
[2016-03-11] VITALS: BP 134/92; PULSE 90; RESP 18; TEMP 98.9; O2SAT 95
[2016-03-11] MEDS: ERYTHROMYCIN INJ 250 MG in SODIUM CHLORIDE 0.9% INJ 100 ML IV SCH ×4 (05:28→23:59)
[2016-03-11] MEDS: METOCLOPRAMIDE HCL 10 MG/2 ML VIAL IV PUSH SCH ×3 (05:28→21:13)
[2016-03-11] MEDS: ACETAMINOPHEN/HYDROcodone 325 MG/5 MG TAB PO PRN ×5 (05:29→21:14)
[2016-03-11 06:21] LABS: PROTHROMBIN TIME - PATIENT 22.5 SEC (9.8-11.6)
[2016-03-11 08:00] VITALS: BP 154/92; PULSE 93; RESP 18; TEMP 97.9; O2SAT 97
[2016-03-11] MEDS: FINASTERIDE 5 MG TAB PO SCH (08:51)
[2016-03-11] MEDS: SODIUM CHLORIDE 0.9% FLUSH 5 ML FLUSH IVF SCH ×2 (08:52→19:32)
--- NOTE | 2016-03-11 09:13 | HHI.PR ---
Subjective Subjective Notes Flatus, no BM yet No emesis yesterday or last night Objective Vitals/I&O Vital Signs Date Time Temp Pulse Resp B/P Pulse Ox O2 Delivery O2 Flow Rate FiO2 03/11/16 08:00 97.9 93 18 154/92 97 03/08/16 10:38 21 Labs Laboratory Tests Test 03/10/16 03/11/16 11:30 05:03 Prothrombin Time 16.8 22.5 Prothromb Time International 1.5 2.0 Ratio Magnesium Level 2.1 Lungs: Clear Abdomen: Other (Distended, but nontender) Extremities: Other (Edematous both legs, no tenderness in calves) Narrative Exam Incision with small amount serous drainage at bottom, no erythema. A/P Assessment and Plan POD #9 TAWR with ultrapro mesh Ileus continues by physical findings today, but improved with flatus. INR 2.0 today Plan: full liquids Walking in hallway Lasix for edema again Likely home in next day or so Terry Garcia MD Mar 11, 2016 09:13
[2016-03-11] MEDS ORDERED: FUROSEMIDE 40 MG/4 ML VIAL IV PUSH ONE (09:15)
[2016-03-11 12:00] VITALS: BP 155/95; PULSE 89; RESP 18; TEMP 97.4; O2SAT 97
[2016-03-11] MEDS: LACTATED RINGER'S 1000 ML INJ 1,000 ML IV SCH (13:26)
[2016-03-11 16:00] VITALS: BP 136/88; PULSE 94; RESP 18; TEMP 98.3; O2SAT 98
[2016-03-11] MEDS: WARFARIN SOD 6 MG TAB PO SCH (16:23)
[2016-03-11] MEDS: HYDROmorphone HCL PF 1 MG/ML VIAL IV PRN ×2 (18:20→22:01)
[2016-03-11] MEDS ORDERED: SIMETHICONE 80 MG CHEWABLE TAB PO ONE (19:30)
[2016-03-11 20:00] VITALS: BP 153/96; PULSE 87; RESP 20; TEMP 98.5; O2SAT 98
[2016-03-12] VITALS: BP 150/84; PULSE 88; RESP 20; TEMP 98.4; O2SAT 98
[2016-03-12] MEDS: METOCLOPRAMIDE HCL 10 MG/2 ML VIAL IV PUSH SCH ×3 (05:32→20:19)
[2016-03-12] MEDS: ERYTHROMYCIN INJ 250 MG in SODIUM CHLORIDE 0.9% INJ 100 ML IV SCH ×3 (05:32→17:23)
[2016-03-12 05:52] LABS: BICARBONATE 29.6 MEQ/L (21.0-32.0); POTASSIUM 3.4 MEQ/L (3.5-5.1)
[2016-03-12] MEDS: FINASTERIDE 5 MG TAB PO SCH (08:00)
[2016-03-12] MEDS: SODIUM CHLORIDE 0.9% FLUSH 5 ML FLUSH IVF SCH ×2 (08:04→20:24)
[2016-03-12] MEDS: LACTATED RINGER'S 1000 ML INJ 1,000 ML IV SCH ×2 (08:04→20:19)
[2016-03-12 08:05] VITALS: BP 155/96; PULSE 89; RESP 18; TEMP 98.3; O2SAT 95
[2016-03-12 12:00] VITALS: BP 161/91; PULSE 107; RESP 20; TEMP 99.3; O2SAT 95
[2016-03-12] MEDS: HYDROmorphone HCL PF 1 MG/ML VIAL IV PRN (12:27)
--- NOTE | 2016-03-12 14:12 | HHI.PR ---
Subjective Subjective Notes Passing flatus, no BM yet Objective Vitals/I&O Vital Signs Date Time Temp Pulse Resp B/P Pulse Ox O2 Delivery O2 Flow Rate FiO2 03/12/16 12:00 99.3 107 20 161/91 95 03/08/16 10:38 21 Labs Laboratory Tests Test 03/12/16 04:41 Sodium Level 136 Potassium Level 3.4 Chloride Level 99 Carbon Dioxide Level 29.6 Anion Gap 7 Blood Urea Nitrogen 6 Creatinine 0.62 Estimat Glomerular Filtration 157 Rate Random Glucose 120 Calcium Level 8.5 Lungs: Clear Abdomen: Other (distended) Narrative Exam Incision with small amount serous drainage at bottom, no erythema. A/P Assessment and Plan POD #10 TAWR with ultrapro mesh Ileus continues by physical findings today, but improved with flatus. INR 2.0 today Plan: full liquids Walking in hallway Lasix for edema again Likely home in next day or so Terry Garcia MD Mar 12, 2016 14:12
[2016-03-12] MEDS ORDERED: BISACODYL 10 MG SUPP RECTAL ONE (14:15)
[2016-03-12] MEDS ORDERED: POTASSIUM CHLOR 20 MEQ PREMIX 100 ML IV ONE (14:15)
[2016-03-12] MEDS ORDERED: LACTULOSE SYRUP 20 GM/30 ML CUP PO ONE (14:15)
[2016-03-12] MEDS ORDERED: FUROSEMIDE 20 MG/2 ML VIAL IV PUSH ONE (14:15)
--- NOTE | 2016-03-12 15:31 | RADRPT ---
EXAM DATE/TIME: 03/12/2016 14:42 [facility] COMPARISON: ABDOMEN FLAT & UPRIGHT, March 05, 2016, 11:29. ABDOMEN KUB ONLY, March 04, 2016, 10:05. INDICATIONS : Abdominal pain and distention, evaluate ileus MEDICAL HISTORY : Deep venous thrombosis. SURGICAL HISTORY : Appendectomy. Hernia repair ENCOUNTER: Subsequent ACUITY: 3 days PAIN SCORE: 5/10 LOCATION: Bilateral abdomen FINDINGS: Air-filled loops of small and large bowel are noted suggesting a mild ileus. Clinical correlation is recommended. Degenerative changes are noted involving the hip joints as well as the visualized porti ons of the thoracolumbar spine. There is no free intraperitoneal air. CONCLUSION: 1. Air-filled loops of small and large bowel suggesting possible mild ileus. Clinical correlation is recommended. 2. Degenerative changes involving the hip joints and thoracolumbar spine. Matthew Borges MD on March 12, 2016 at 15:23 Board Certified Radiologist. This report was verified electronically.
[2016-03-12 16:00] VITALS: BP 143/97; PULSE 105; RESP 18; TEMP 99.7; O2SAT 95
[2016-03-12] MEDS: WARFARIN SOD 6 MG TAB PO SCH (16:00)
[2016-03-12] MEDS: ACETAMINOPHEN/HYDROcodone 325 MG/5 MG TAB PO PRN (17:23)
[2016-03-12 18:40] LABS: INTERNATIONAL NORMALIZED RATIO 2.8 RATIO; PROTHROMBIN TIME - PATIENT 31.9 SEC (9.8-11.6)
[2016-03-12 20:00] VITALS: BP 154/88; PULSE 98; RESP 19; TEMP 98.9; O2SAT 97
[2016-03-13] VITALS: BP 146/87; PULSE 90; RESP 21; TEMP 98.8; O2SAT 100
[2016-03-13] MEDS: ERYTHROMYCIN INJ 250 MG in SODIUM CHLORIDE 0.9% INJ 100 ML IV SCH ×4 (00:35→16:21)
[2016-03-13] MEDS: METOCLOPRAMIDE HCL 10 MG/2 ML VIAL IV PUSH SCH ×3 (04:57→20:59)
[2016-03-13] MEDS: ACETAMINOPHEN/HYDROcodone 325 MG/5 MG TAB PO PRN ×3 (05:01→13:32)
[2016-03-13 08:00] VITALS: BP 144/89; PULSE 91; RESP 16; TEMP 98.4; O2SAT 100
[2016-03-13] MEDS: FINASTERIDE 5 MG TAB PO SCH (08:51)
[2016-03-13] MEDS: SODIUM CHLORIDE 0.9% FLUSH 5 ML FLUSH IVF SCH ×2 (08:51→20:59)
[2016-03-13 12:00] VITALS: BP 154/93; PULSE 98; RESP 16; TEMP 97.7; O2SAT 95
[2016-03-13 12:28] LABS: INTERNATIONAL NORMALIZED RATIO 2.8 RATIO; PROTHROMBIN TIME - PATIENT 32.7 SEC (9.8-11.6)
[2016-03-13 12:51] LABS: POTASSIUM 3.7 MEQ/L (3.5-5.1)
[2016-03-13] MEDS ORDERED: LACTULOSE SYRUP 20 GM/30 ML CUP PO ONE (14:15)
[2016-03-13] MEDS: HYDROmorphone HCL PF 1 MG/ML VIAL IV PRN (15:09)
[2016-03-13] MEDS: SODIUM CHLORIDE 0.9% FLUSH 5 ML FLUSH IVF PRN ×2 (15:10→17:05)
[2016-03-13 15:57] VITALS: BP 154/86; PULSE 94; RESP 17; TEMP 97.4; O2SAT 93
[2016-03-13] MEDS: WARFARIN SOD 6 MG TAB PO SCH (16:20)
[2016-03-13 20:00] VITALS: BP 110/93; PULSE 109; RESP 19; TEMP 98.5; O2SAT 93
--- NOTE | 2016-03-13 20:08 | HHI.PR ---
Subjective Subjective Notes had a bowel movement that last night. Tolerating full liquids well. Objective Vitals/I&O Vital Signs Date Time Temp Pulse Resp B/P Pulse Ox O2 Delivery O2 Flow Rate FiO2 03/13/16 15:57 97.4 94 17 154/86 93 Labs Laboratory Tests Test 03/13/16 11:57 Prothrombin Time 32.7 Prothromb Time International 2.8 Ratio Sodium Level 136 Potassium Level 3.7 Chloride Level 101 Carbon Dioxide Level 31.0 Anion Gap 4 Blood Urea Nitrogen 6 Creatinine 0.63 Estimat Glomerular Filtration 154 Rate Random Glucose 123 Calcium Level 8.4 Magnesium Level 2.0 Lungs: Clear Abdomen: Other (distended still) Narrative Exam Incision with small amount serous drainage at bottom, no erythema. Steri-Strips remove from inferior portion of incision. No infection A/P Assessment and Plan POD #11 TAWR with ultrapro mesh Ileus continues by physical findings today, but improved with flatus. INR 2.8 today Plan: full liquids; advance to regular diet Walking in hallway [facility] for edema again Likely home in next day or so Terry Garcia MD Mar 13, 2016 20:08
[2016-03-14] VITALS: BP 158/89; PULSE 117; RESP 19; TEMP 98.3; O2SAT 92
[2016-03-14] MEDS: ERYTHROMYCIN INJ 250 MG in SODIUM CHLORIDE 0.9% INJ 100 ML IV SCH ×5 (00:20→23:48)
[2016-03-14] MEDS: LACTATED RINGER'S 1000 ML INJ 1,000 ML IV SCH ×2 (00:20→17:41)
[2016-03-14 04:52] LABS: INTERNATIONAL NORMALIZED RATIO 3.5 RATIO; PROTHROMBIN TIME - PATIENT 41.4 SEC (9.8-11.6)
[2016-03-14] MEDS: METOCLOPRAMIDE HCL 10 MG/2 ML VIAL IV PUSH SCH ×3 (04:55→21:10)
[2016-03-14 08:00] VITALS: BP 132/79; PULSE 102; RESP 16; TEMP 98.8; O2SAT 94
[2016-03-14] MEDS ORDERED: LACTULOSE SYRUP 20 GM/30 ML CUP PO ONE (08:15)
[2016-03-14] MEDS: SODIUM CHLORIDE 0.9% FLUSH 5 ML FLUSH IVF SCH ×2 (09:00→20:06)
[2016-03-14] MEDS: FINASTERIDE 5 MG TAB PO SCH (09:28)
[2016-03-14 10:35] LABS: BICARBONATE 29.3 MEQ/L (21.0-32.0); POTASSIUM 3.8 MEQ/L (3.5-5.1)
--- NOTE | 2016-03-14 11:24 | RADRPT ---
EXAM DATE/TIME: 03/14/2016 11:02 [facility] COMPARISON: CHEST SINGLE AP, March 03, 2016, 14:04. INDICATIONS: post PICC line right arm MEDICAL HISTORY: Deep venous thrombosis. SURGICAL HISTORY: Appendectomy. ENCOUNTER: Initial ACUITY: 1 week PAIN SCORE: 0/10 LOCATION: Bilateral chest FINDINGS: A right-sided PICC line has its tip at the junction of the superior vena cava and right atrium. The heart and mediastinal structures are stable. The pulmonary vascular pattern is also normal. The nelson gs are clear. Hardware is noted within the lower cervical spine status post fusion. CONCLUSION: 1. Right-sided PICC line has its tip in good position at the junction of the superior vena cava and right atrium. 2. No acute cardiopulmonary disease. Matthew Borges MD on March 14, 2016 at 11:18 Board Certified Radiologist. This report was verified electronically.
[2016-03-14 12:00] VITALS: BP 143/78; PULSE 102; RESP 17; TEMP 98.9; O2SAT 94
[2016-03-14 16:00] VITALS: BP 154/84; PULSE 102; RESP 18; TEMP 99.4; O2SAT 94
[2016-03-14] MEDS: WARFARIN SOD 6 MG TAB PO SCH (17:40)
--- NOTE | 2016-03-14 18:33 | HHI.PR ---
Subjective Subjective Notes Had emesis last night; BM's x 5 today Objective Vitals/I&O Vital Signs Date Time Temp Pulse Resp B/P Pulse Ox O2 Delivery O2 Flow Rate FiO2 03/14/16 16:00 99.4 102 18 154/84 94 Labs Laboratory Tests Test 03/14/16 03/14/16 04:28 09:33 Prothrombin Time 41.4 Prothromb Time International 3.5 Ratio Sodium Level 138 Potassium Level 3.8 Chloride Level 102 Carbon Dioxide Level 29.3 Anion Gap 7 Blood Urea Nitrogen 9 Creatinine 0.66 Estimat Glomerular Filtration 146 Rate Random Glucose 95 Calcium Level 8.3 Lungs: Clear Abdomen: Other (Distended, but less today) Narrative Exam Incision with small amount serous drainage at bottom, no erythema. A/P Assessment and Plan POD #12 TAWR with ultrapro mesh Ileus continues by physical findings today, but improved with flatus and multiple BM's. PICC line placed today; will start TPN if he does not tolerate diet tomorrow INR 2.8 today Plan: full liquids; advance to regular diet Walking in hallway Will obtain CT if he does not progress, although persistent ileus is still most likely problem. Terry Garcia MD Mar 14, 2016 18:33
[2016-03-14 20:00] VITALS: BP 148/80; PULSE 96; RESP 20; TEMP 99; O2SAT 95
[2016-03-15] MEDS: ERYTHROMYCIN INJ 250 MG in SODIUM CHLORIDE 0.9% INJ 100 ML IV SCH ×2 (05:05→11:31)
[2016-03-15] MEDS: LACTATED RINGER'S 1000 ML INJ 1,000 ML IV SCH (05:06)
[2016-03-15] MEDS: METOCLOPRAMIDE HCL 10 MG/2 ML VIAL IV PUSH SCH ×3 (05:06→21:29)
[2016-03-15 05:46] LABS: INTERNATIONAL NORMALIZED RATIO 4.7 RATIO; PROTHROMBIN TIME - PATIENT 55.5 SEC (9.8-11.6)
[2016-03-15 08:00] VITALS: BP 153/79; PULSE 95; RESP 18; TEMP 98; O2SAT 100
[2016-03-15] MEDS: FINASTERIDE 5 MG TAB PO SCH (08:58)
[2016-03-15] MEDS: SODIUM CHLORIDE 0.9% FLUSH 5 ML FLUSH IVF SCH ×2 (08:59→19:50)
[2016-03-15] MEDS ORDERED: FUROSEMIDE 40 MG/4 ML VIAL IV PUSH ONE (09:15)
[2016-03-15 12:00] VITALS: BP 147/76; PULSE 102; RESP 18; TEMP 98.3; O2SAT 95
--- NOTE | 2016-03-15 13:05 | HHI.PR ---
Subjective Subjective Notes Having bowel movements now. No pain. Objective Vitals/I&O Vital Signs Date Time Temp Pulse Resp B/P Pulse Ox O2 Delivery O2 Flow Rate FiO2 03/15/16 12:00 98.3 102 18 147/76 95 Labs Laboratory Tests Test 03/15/16 05:05 Prothrombin Time 55.5 Prothromb Time International 4.7 Ratio Lungs: Clear Abdomen: Other (Still distended but softer) Extremities: Other (Pedal edema, moderate) Narrative Exam Incision with small amount serous drainage at bottom, no erythema. A/P Assessment and Plan POD #13 TAWR with ultrapro mesh Ileus continues by physical findings today, but improved with flatus and multiple BM's. INR 4.7 today; hold coumadin Plan: Walking in hallway Possible D/C next 48 hrs Terry Garcia MD Mar 15, 2016 13:05
[2016-03-15 15:00] VITALS: BP 148/77; PULSE 94; RESP 17; TEMP 97.5; O2SAT 98
[2016-03-15 20:00] VITALS: BP 146/78; PULSE 92; RESP 18; TEMP 98.8; O2SAT 97
[2016-03-16] VITALS: BP 138/80; PULSE 94; RESP 18; TEMP 97.6; O2SAT 98
[2016-03-16] MEDS: METOCLOPRAMIDE HCL 10 MG/2 ML VIAL IV PUSH SCH ×3 (04:54→21:03)
[2016-03-16 05:32] LABS: INTERNATIONAL NORMALIZED RATIO 4.9 RATIO; PROTHROMBIN TIME - PATIENT 58.4 SEC (9.8-11.6)
[2016-03-16 05:42] LABS: BICARBONATE 27.7 MEQ/L (21.0-32.0); POTASSIUM 3.1 MEQ/L (3.5-5.1)
[2016-03-16] MEDS: SODIUM CHLORIDE 0.9% FLUSH 5 ML FLUSH IVF SCH ×2 (07:50→21:03)
[2016-03-16] MEDS: FINASTERIDE 5 MG TAB PO SCH (07:50)
[2016-03-16 08:00] VITALS: BP 133/82; PULSE 99; RESP 18; TEMP 99; O2SAT 100
--- NOTE | 2016-03-16 09:52 | HHI.PR ---
Subjective Subjective Notes Resting in bed Still feels somewhat weak Reports +BM Objective Vitals/I&O Vital Signs Date Time Temp Pulse Resp B/P Pulse Ox O2 Delivery O2 Flow Rate FiO2 03/16/16 08:00 99.0 99 18 133/82 100 Labs Laboratory Tests Test 03/16/16 04:55 Prothrombin Time 58.4 Prothromb Time International 4.9 Ratio Sodium Level 139 Potassium Level 3.1 Chloride Level 104 Carbon Dioxide Level 27.7 Anion Gap 7 Blood Urea Nitrogen 5 Creatinine 0.66 Estimat Glomerular Filtration 146 Rate Random Glucose 106 Calcium Level 8.1 Cardiovascular: Regular Lungs: Clear Abdomen: Other (midline incision; small amount of drainage from inferior portion of incision; minimally distended; abdominal binder in place ) Extremities: No edema A/P Assessment and Plan 65 year old male POD14 TAWR with Ultrapro mesh -Tolerating regular diet -INR still elevated; will check tomorrow and hold Coumadin for now -OOB and walk in hallways -CARISSA Rolle at bedside Attending Statement pt seen at bedside ileus improving +bowel function Attestation The exam, history, and the medical decision-making described in the above note were completed with the assistance of the mid-level provider. I reviewed and agree with the findings presented. I attest that I had a [id number] encounter with the patient on the same day, and personally performed and documented my assessment and findings in the medical record. Denise Lyons Mar 16, 2016 09:52 Samuel Bustamante MD Mar 18, 2016 20:24
[2016-03-16 12:00] VITALS: BP 155/87; PULSE 96; RESP 18; TEMP 96.9; O2SAT 96
[2016-03-16 16:00] VITALS: BP 140/85; PULSE 93; RESP 18; TEMP 98.6; O2SAT 96
[2016-03-16 20:37] VITALS: BP 149/79; PULSE 97; RESP 18; TEMP 100; O2SAT 98
[2016-03-17 00:15] VITALS: BP 147/79; PULSE 90; RESP 18; TEMP 97.6; O2SAT 99
[2016-03-17] MEDS: METOCLOPRAMIDE HCL 10 MG/2 ML VIAL IV PUSH SCH ×3 (04:25→20:42)
[2016-03-17 06:08] LABS: INTERNATIONAL NORMALIZED RATIO 3.2 RATIO; PROTHROMBIN TIME - PATIENT 37.5 SEC (9.8-11.6)
[2016-03-17 08:00] VITALS: BP 134/63; PULSE 97; RESP 20; TEMP 98.7; O2SAT 96
[2016-03-17] MEDS: SODIUM CHLORIDE 0.9% FLUSH 5 ML FLUSH IVF SCH ×2 (09:00→20:41)
[2016-03-17] MEDS: FINASTERIDE 5 MG TAB PO SCH (09:11)
[2016-03-17 12:00] VITALS: BP 144/86; PULSE 92; RESP 18; TEMP 98; O2SAT 100
--- NOTE | 2016-03-17 13:15 | HHI.PR ---
Subjective Subjective Notes pt doing better, tolerating diet, no nausea, +bm, oob ambulating Objective Vitals/I&O Vital Signs Date Time Temp Pulse Resp B/P Pulse Ox O2 Delivery O2 Flow Rate FiO2 03/17/16 12:00 98.0 92 18 144/86 100 Labs Laboratory Tests Test 03/17/16 05:45 Prothrombin Time 37.5 Prothromb Time International 3.2 Ratio Cardiovascular: Regular Lungs: Clear Abdomen: Other (soft mild ttp, no rebound, inferior wound with dressing scant drainage) A/P Assessment and Plan 65 year old male POD15 TAWR with Ultrapro mesh- INR 3.2 -Tolerating regular diet -INR still elevated but trending down; will check tomorrow and hold Coumadin for now -OOB and walk in hallways - dressing change to inferior wound binder placed Samuel Bustamante MD Mar 17, 2016 13:15
[2016-03-17] MEDS: WARFARIN SOD 6 MG TAB PO SCH (15:51)
[2016-03-17 16:00] VITALS: BP 137/88; PULSE 88; RESP 18; TEMP 99.5; O2SAT 98
[2016-03-17 20:00] VITALS: BP 147/89; PULSE 55; RESP 20; TEMP 99.4; O2SAT 96
[2016-03-18] VITALS: BP 139/82; PULSE 92; RESP 19; TEMP 99; O2SAT 93
[2016-03-18] MEDS: METOCLOPRAMIDE HCL 10 MG/2 ML VIAL IV PUSH SCH (05:15)
[2016-03-18 05:56] LABS: INTERNATIONAL NORMALIZED RATIO 3.3 RATIO; PROTHROMBIN TIME - PATIENT 38.8 SEC (9.8-11.6)
[2016-03-18 08:00] VITALS: BP 136/84; PULSE 89; RESP 20; TEMP 98.9; O2SAT 97
[2016-03-18] MEDS: SODIUM CHLORIDE 0.9% FLUSH 5 ML FLUSH IVF SCH (08:58)
[2016-03-18] MEDS: FINASTERIDE 5 MG TAB PO SCH (08:58)
--- NOTE | 2016-03-18 12:14 | HHI.PR ---
Subjective Subjective Notes Feeling well; tolerating diet and moving bowels. Objective Vitals/I&O Vital Signs Date Time Temp Pulse Resp B/P Pulse Ox O2 Delivery O2 Flow Rate FiO2 03/18/16 08:00 98.9 89 20 136/84 97 Labs Laboratory Tests Test 03/18/16 05:30 Prothrombin Time 38.8 Prothromb Time International 3.3 Ratio Lungs: Clear Abdomen: Other (Mildly distended, nontender) Narrative Exam Incision with small amount serous drainage at bottom, no erythema. Seroma under umbilicus. A/P Assessment and Plan POD #16 TAWR with ultrapro mesh Ileus improved with flatus and multiple BM's. INR 3.3 today Plan: Walking in hallway D/C today F/U 48 hrs in my office Terry Garcia MD Mar 18, 2016 12:14
[2016-03-18] MEDS ORDERED: NORC5TAB PO (12:15)
[2016-03-18] MEDS ORDERED: AUGM875T PO (12:16)
--- NOTE | 2016-03-18 12:17 | HHI.DS ---
Discharge Summary Admission Date Mar 02, 2016 at 13:28 Admitting Diagnosis Brief History Admitted on 03/02 for TAR with ultrapro mesh. CBC/BMP: 03/16/16 0455 Significant Findings Laboratory Tests Test 03/16/16 03/17/16 03/18/16 04:55 05:45 05:30 Prothrombin Time 58.4 SEC 37.5 SEC 38.8 SEC (9.8-11.6) (9.8-11.6) (9.8-11.6) Potassium Level 3.1 MEQ/L (3.5-5.1) Blood Urea Nitrogen 5 MG/DL (7-18) Calcium Level 8.1 MG/DL (8.5-10.1) PE at Discharge Incision with small amount serous drainage at bottom, no erythema. Seroma under umbilicus. Pt Condition on Discharge: Good Discharge Disposition: Discharge Home Discharge Instructions DIET: Follow Instructions for: As Tolerated, No Restrictions Activities you can perform: Shower Only-No Bath Activities to Avoid: Strenuous Activity Terry Garcia MD Mar 18, 2016 12:17
--- NOTE | 2016-03-18 12:21 | HHI.DS ---
Discharge Summary Admission Date Mar 02, 2016 at 13:28 Admitting Diagnosis Brief History Admitted on 03/02 for TAR with ultrapro mesh. CBC/BMP: 03/16/16 0455 Significant Findings Laboratory Tests Test 03/16/16 03/17/16 03/18/16 04:55 05:45 05:30 Prothrombin Time 58.4 SEC 37.5 SEC 38.8 SEC (9.8-11.6) (9.8-11.6) (9.8-11.6) Potassium Level 3.1 MEQ/L (3.5-5.1) Blood Urea Nitrogen 5 MG/DL (7-18) Calcium Level 8.1 MG/DL (8.5-10.1) PE at Discharge Incision with small amount serous drainage at bottom, no erythema. Seroma under umbilicus. Hospital Course Patient progressed slowly with tachycardia the first 72 hrs after surgery, but no BP or temperature issues. Connor removed on POD #2, NG left in until patient had flatus. He developed a postoperative persistent ileus that did not require replacement of the NG tube, but did not allow diet to be advanced. Patient had emesis once on POD #12 on full liquids, but then progressed to a regular diet with no further episodes, no nausea and with daily BM's. Patient has small amount of drainage from the inferior portion of the wound with slight skin separation; he is placing a dry bandage on this. Pt Condition on Discharge: Good Discharge Disposition: Discharge Home Discharge Instructions DIET: Follow Instructions for: As Tolerated, No Restrictions Activities you can perform: Shower Only-No Bath Activities to Avoid: Strenuous Activity Terry Garcia MD Mar 18, 2016 12:21
== END 2016-03-18 13:42 | disposition home or self-care (01) | DRG 354 ==
LOC: HSDC 05:32 → HSDI 13:28 → N07A 15:04
PROVIDERS: ADMIT Surgery Trauma Surgery; ATTEND Surgery Trauma Surgery
PROC: 0KXL0ZZ Transfer Left Abdomen Muscle, Open Approach (ICD-10-PCS; 2016-03-02)
PROC: 0KXK0ZZ Transfer Right Abdomen Muscle, Open Approach (ICD-10-PCS; 2016-03-02)
PROC: 0JN80ZZ Release Abdomen Subcutaneous Tissue and Fascia, Open Approach (ICD-10-PCS; 2016-03-02)
PROC: 0WUF0JZ Supplement Abdominal Wall with Synthetic Substitute, Open Approach (ICD-10-PCS; principal; 2016-03-02 07:54)
PROC: 02HV33Z Insertion of Infusion Device into Superior Vena Cava, Percutaneous Approach (ICD-10-PCS; 2016-03-14)
DX: K43.0 Incisional hernia with obstruction, without gangrene (principal); K56.7 Ileus, unspecified; E78.5 Hyperlipidemia, unspecified; K21.9 Gastro-esophageal reflux disease without esophagitis; K66.0 Peritoneal adhesions (postprocedural) (postinfection); N40.0 Benign prostatic hyperplasia without lower urinary tract symptoms; M13.842 Other specified arthritis, left hand; M13.841 Other specified arthritis, right hand; K76.9 Liver disease, unspecified; R60.9 Edema, unspecified; Z23 Encounter for immunization; Z86.718 Personal history of other venous thrombosis and embolism; Z87.891 Personal history of nicotine dependence; Z79.01 Long term (current) use of anticoagulants
CPT/HCPCS: 36569; 71010; 74000; 74020; 76937; 80048; 81001; 83735; 85025; 85027; 85610; 87086; 90471; 90732; 94150; 94664; C1781; G0009; J0131; J0690; J1100; J1170; J1364; J1642; J1650; J1885; J1940; J2250; J2270; J2370; J2405; J2765; J2795; J3010; J3480; J7030; J7040; J7120